=== PATIENT | female | born 1945 | race Caucasian/White ===

== ENCOUNTER 2017-11-21 08:00 | Inpatient (IN) | payer OTHER ==
[~2017-11-21] VITALS: Ht 175.3 cm; Wt 72.6 kg
[2017-11-21] MEDS ORDERED: TROMBONEX-D CA1 EACH PO (09:32)
[2017-11-21] MEDS ORDERED: ULTRACET PO (09:33)
[2017-11-21] MEDS ORDERED: STRESS FORMULA1 EAC5 PO (09:33)
[2017-11-28] MEDS ORDERED: PERCOCET 5-3251 EACH PO (14:57)
[2017-11-28] MEDS ORDERED: CEFADROXIL500 MG PO (14:57)
[2017-11-28] MEDS ORDERED: XARELTO10 MG PO (14:57)
== END 2017-11-28 19:33 | DRG 470 ==
LOC: SURG 11-26 05:25 → O/R 11-26 05:25 → SURH 11-26 07:00 → SURG 11-26 10:48
PROVIDERS: Orthopaedic Surgery
PROC: 0MNN0ZZ Release Right Knee Bursa and Ligament, Open Approach (ICD-10-PCS; 2017-11-26)
PROC: 0SRC0J9 Replacement of Right Knee Joint with Synthetic Substitute, Cemented, Open Approach (ICD-10-PCS; principal; 2017-11-26 07:00)
DX: M17.11 Unilateral primary osteoarthritis, right knee (principal); D62 Acute posthemorrhagic anemia; E11.9 Type 2 diabetes mellitus without complications; M81.0 Age-related osteoporosis without current pathological fracture

== ENCOUNTER 2018-09-15 23:44 | Emergency (ER) | payer OTHER ==
[~2018-09-15] VITALS: Ht 175.3 cm; Wt 73.5 kg
[~2018-09-15 23:44] MED LIST: CEFADROXIL500 MG PO; PERCOCET 5-3251 EACH PO; STRESS FORMULA1 EAC5 PO; TROMBONEX-D CA1 EACH PO; ULTRACET PO; XARELTO10 MG PO
[2018-09-16] MEDS ORDERED: ZEBUTAL 50-3251 EACH PO (04:24)
== END 2018-09-16 04:35 | disposition home or self-care (01) ==
LOC: ER 23:44
DX: S00.83XA Contusion of other part of head, initial encounter (principal); S20.212A Contusion of left front wall of thorax, initial encounter; S60.032A Contusion of left middle finger without damage to nail, initial encounter; S90.32XA Contusion of left foot, initial encounter; S00.411A Abrasion of right ear, initial encounter; W06.XXXA Fall from bed, initial encounter; Y93.84 Activity, sleeping; Y92.013 Bedroom of single-family (private) house as the place of occurrence of the external cause; Y99.8 Other external cause status

== ENCOUNTER 2018-12-21 08:51 | Emergency (ER) | payer OTHER ==
[~2018-12-21] VITALS: Ht 175.3 cm; Wt 75.3 kg
[~2018-12-21 08:51] MED LIST changes: +ZEBUTAL 50-3251 EACH PO
== END 2018-12-21 09:30 | disposition home or self-care (01) ==
LOC: ER 08:51
DX: M54.31 Sciatica, right side (principal)